=== PATIENT | male | born 1945 | race Caucasian/White ===

== ENCOUNTER → 2018-12-25 13:17 | Outpatient (CLI) | payer MEDICARE, SELFPAY ==
--- NOTE | 2018-12-25 | DI.MRI.S_ITS ---
PROCEDURE: MR SHOULDER LT WO CON INDICATIONS: Pain in left shoulder TECHNIQUE: Noncontrast oblique coronal T2 fast spin echo with fat saturation, oblique sagittal T1 spin echo and T2 fast spin echo with fat saturation, axial T1 spin echo and T2 fast spin echo with fat saturation through the shoulder. COMPARISON: None. FINDINGS: Image quality: Excellent. Rotator cuff: Large full-thickness tear involving the supraspinatus tendon critical zone measuring approximately 2.2 cm in AP dimension as seen on sagittal image 15 series 10, and 2.0 cm in the transverse left longitudinal dimension as seen on coronal image 8 series 8. The infraspinatus tendon appears grossly intact. Teres minor appears intact. Subscapularis tendinopathy and thickening noted. Borderline atrophy of the supraspinatus muscle. There is diffuse fatty infiltration of the rotator cuff musculature. Bones and bursae: No bone marrow contusions or fractures. Moderate acromioclavicular joint degeneration. Moderate glenohumeral degenerative joint disease. The acromion demonstrates conventional anatomy, without an os acromiale. Capsule and soft tissues: Blunting of the superior labrum without discrete tear by strict MR criteria. There is heterogeneous signal change and mild hypertrophy of the anteroinferior labrum as well as the posteroinferior labrum. This suggests chronic tear versus degeneration. Adjacent circumferential/segmental glenoid rim sclerosis is noted The long head of the biceps tendinopathy noted without definite medial subluxation. The rotator interval appears normal, without fibrosis. The coracohumeral ligament is normal in thickness. IMPRESSION: Large full-thickness tear of the supraspinatus tendon critical zone. Borderline supraspinatus atrophy. Subscapularis tendinopathy. Degenerative joint disease as above. Chronic irregularity and hypertrophy of the anteroinferior and posteroinferior labrum suggesting chronic tear with fibrotic change, versus long standing degeneration. Long head biceps tendinopathy. Dictated by: Job Potter M.D. on 12/27/2018 at 10:28 Approved by: Job Potter M.D. on 12/27/2018 at 10:36
== END ==
PROVIDERS: Visit Provider Orthopaedic Surgery
DX: M25.512 Pain in left shoulder (principal); M75.122 Complete rotator cuff tear or rupture of left shoulder, not specified as traumatic; M19.012 Primary osteoarthritis, left shoulder
CPT/HCPCS: 73221

== ENCOUNTER → 2019-01-11 12:08 | Outpatient (CLI) | payer MEDICARE, SELFPAY ==
[2019-01-11 12:48] LABS: Add Manual Diff / Slide Review NO; Basophils Absolute Auto 0 /uL (0-100); Basophils Percent Auto 0.4 % (0-2); Eosinophils Absolute Auto 200 /uL (0-450); Eosinophils Percent Auto 2.5 % (2-4); Hematocrit 39.7 % (41-53); Hemoglobin 13.7 g/dL (13.5-17.5); Lymphocytes Absolute Auto 1400 /uL (1100-4500); Mean Corpuscular HGB Conc 34.6 % (30-36); Mean Corpuscular Hemoglobin 30.8 PG (26-34); Mean Corpuscular Volume 89.1 fL (80-100); Monocytes Absolute Auto 400 /uL (0-900); Monocytes Percent Auto 7.1 % (3-14); Neutrophils Absolute Auto 4100 /uL (1500-7000); Platelet Count 189 X10^3/uL (150-400); Red Blood Cell Count 4.46 X10^6/uL (4.5-5.9); White Blood Cell Count 6.2 X10^3/uL (4.5-11.0)
[2019-01-11 13:02] LABS: Blood Urea Nitrogen 18 mg/dL (9-20); Calcium 9.8 mg/dL (8.4-10.2); Carbon Dioxide 29 mmol/L (22-32); Chloride 104 mmol/L (98-107); Estimated Glomerular Filt Rate > 60.0 mL/min (>60); Glucose 98 mg/dL (80-110); HEMOLYSIS < 15 (0-50); Potassium 4.4 mmol/L (3.4-5.1); Sodium 142 mmol/L (137-145)
== END ==
PROVIDERS: Visit Provider Orthopaedic Surgery
DX: S46.012A Strain of muscle(s) and tendon(s) of the rotator cuff of left shoulder, initial encounter (principal); Z01.818 Encounter for other preprocedural examination
CPT/HCPCS: 36415; 80048; 85025; 93005

== ENCOUNTER 2020-03-14 07:16 | Day surgery (SDC) | payer MEDICARE, SELFPAY ==
--- NOTE | 2020-03-13 18:18 | PM.PREOP ---
Pre-operative Note COVID-19 COVID-19 status: Negative Interval Note History & Physical reviewed/Exam performed by Physician: Yes Changes to H&P: No
--- NOTE | 2020-03-14 07:29 | PM.OP.1 ---
Operative Date/Time/Diagnoses Date of procedure: 03/14/20 Time of procedure: 08:45 Procedure & Clinicians Procedure: Preoperative diagnoses: 1. Left nuclear sclerotic and cortical cataract. 2. History of stroke. 3. History of enlarged prostate. 4. Vertigo 5. Claustrophobia Postoperative diagnoses: 1. Cataract removed by phacoemulsification with placement of posterior chamber intraocular lens. 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 Both distance and near are affected. The patient wants surgery to improve vision. He does have positional vertigo which he cannot determine when it will onset. He had no episodes during this surgery although he did have slight nausea The patient was taken to the operating room and given IV sedation. A retrobulbar block consisting of 6 cc of 2% xylocaine without epinephrine mixed half and half with 0.5% Marcaine with 1 cc of hyaluronidase added is placed between the medial and lateral 1/3 of the inferior orbital rim. The eye is manually massaged for 30 sec, prepped using Betadine solution, and draped in the usual sterile fashion. Temporal approach was made, a 1 mm side-port incision was made 90? from the proposed clear corneal incision position. Phenylephrine 1.5% mixed with 1% xylocaine 0.2 cc was placed into the anterior chamber. Viscoat followed by Healon was then placed. A 2.6 mm clear incision with a 2.6 mm blade was placed. A 360 degree capsulorrhexis style capsulotomy was then performed with a cystitome needle on a Healon. Hydrodelineation and hydrodissection were performed. The phacoemulsification unit is introduced, and sculpting notice used to groove the central lens. It is then removed in chopping mode. Epi nucleus is removed with epinuclear mode and irrigation aspiration was used to remove the peripheral cortex. The posterior capsule is polished. The intraocular lens is selected, inspected, power confirmed, and placed in the posterior chamber. The wound was stromally hydrated and tested for leaks, there was none and it was left sutureless. Vigamox 0.1 cc was placed into the anterior chamber. Kenalog 0.2 cc was placed in the superior subconjunctival space. A drop of antibiotic and was placed and the eye was patched and shielded. The patient was stable and returned to the recovery room in excellent condition. Dictated by: Tia Cheatham MD Copy to: [facility] Same procedure as scheduled: Yes
[2020-03-14 08:06] VITALS: BP 144/70; PULSE 53; RESP 16; TEMP 36.9; O2SAT 98; BMI 25.8
[2020-03-14] MEDS: PROPARACAINE 0.5% OPHTH SOL 2 DROPS EYE-OP (08:12)
[2020-03-14] MEDS: CATARACT EYE COMPOUND (10 DROPS/SYRINGE) 3 DROPS EYE-OP (08:12)
--- NOTE | 2020-03-14 08:19 | SUR.OPER ---
Supine on eye stretcher, head on extension cradle secured with tape. Arms tucked at sides with blanket. Pillow under knees.
[2020-03-14] MEDS: BALANCED SALT IRRIG SOLN NO.2 500 ML, EPINEPHrine 1 MG IRR (09:14)
[2020-03-14] MEDS: LIDOCAINE 2% 4 ML, BUPIVACAINE 0.5% (PF) 4 ML, HYALURONIDASE 150 UNIT INJ (09:15)
[2020-03-14] MEDS: TRIAMCINOLONE 50 MG/5 ML VIAL INJ (09:16)
[2020-03-14] MEDS: PHENYLEPHRINE/LIDOCAINE VIAL (OR) 0.2 ML EYE-OP (09:17)
[2020-03-14] MEDS: MOXIFLOXACIN INJ 5 MG/ML VIAL EYE-OP (09:18)
[2020-03-14] MEDS: HYALURONATE SODIUM 10 MG/ML SYRINGE INJ (09:19)
[2020-03-14] MEDS: CHONDROIDTIN/SOD HYALURONATE 1.05 ML SYRINGE INTRAOCULA (09:19)
[2020-03-14] MEDS: ERYTHROMYCIN OPHTH 1 GM OINT 1 APPLIC EYE-LEFT (09:26)
[2020-03-14 09:36] VITALS: BP 133/78; PULSE 49; RESP 17; TEMP 36.3; O2SAT 97
[2020-03-14 09:55] VITALS: BP 113/69; PULSE 49; RESP 17; TEMP 36.6; O2SAT 96
== END 2020-03-14 09:57 | disposition home or self-care (01) ==
PROVIDERS: PCP Family Medicine; Referring Provider Family Medicine; Visit Provider Ophthalmology
PROC: (CPT 66984; principal; 2020-03-14 08:45)
DX: H25.812 Combined forms of age-related cataract, left eye (principal); Z86.73 Personal history of transient ischemic attack (TIA), and cerebral infarction without residual deficits; R42 Dizziness and giddiness; I10 Essential (primary) hypertension; I25.10 Atherosclerotic heart disease of native coronary artery without angina pectoris
CPT/HCPCS: 66984; J0171; J2704; J3301; J3470

== ENCOUNTER 2020-03-28 10:24 | Day surgery (SDC) | payer MEDICARE, SELFPAY ==
--- NOTE | 2020-03-28 08:03 | P.OP_ITS ---
Operative Date/Time/Diagnoses Date of procedure: 03/28/20 Time of procedure: 11:45 Procedure & Clinicians Procedure: Preoperative diagnoses: 1. Right significant Nuclear sclerotic and corticalcataract 2. Astigmatism which is to be corrected with a toric intraocular lens implant. 3. Positional vertigo Postoperative diagnoses: 1. Cataract removal with phacoemulsification with toric posterior chamber intraocular lens implant placed. Procedure: Phacoemulsification with posterior chamber toric intraocular lens implant. Surgeon: Tia Cheatham MD Complications: None Specimen: None Implant: [id number] +21.5 [place] 024 Blood loss: None Anesthesia: Retrobulbar with monitored standby Description of procedure: Patient presents with a complaint of decreased vision due to cataract which is affecting activities of daily living. 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 The patient wants surgery to improve vision and astigmatism. He has a history of on predictable positional vertigo. The patient was taken to the operating room and proparacaine drops placed. Indelible ink muñoz were placed at the 90 and 180 degree meridian. The patient was placed on the operating room table and given IV sedation. A retrobulbar block insert consisting of 6 cc of 2% xylocaine without epinephrine mixed half and half with 0.5% Marcaine with 1 cc of hyaluronidase added is placed between the medial and lateral 1/3 of the inferior orbital rim. The eye is manually massaged for 30 sec, prepped using Betadine solution, and draped in the usual sterile fashion. Temporal approach was made, a 1 mm side-port incision was made 90? from the proposed corneal wound. Phenylephrine 1.5% mixed with 1% xylocaine 0.2 cc was placed into the anterior chamber. Viscoat followed by Chris was then placed. A 2.6 mm clear incision with a 2.6 mm blade was placed at the 170 degree meridian. A 360 degree capsulorrhexis style capsulotomy was then performed with a cystitome needle on a Healon. Hydrodelineation and hydrodissection were performed. The phacoemulsification unit is introduced, and sculpting used to groove the central lens. It is then removed in chopping mode. Epi nucleus is removed with epinuclear mode and irrigation aspiration was used to remove the peripheral cortex. The posterior capsule is polished. The intraocular lens is selected, inspected, power confirmed, and placed in the posterior chamber at the desired meridian of 24?. The pupil was not constricted. The wound was stromally hydrated and tested for leaks, there was none and it was left sutureless. Vigamox 0.1 cc was placed into the anterior chamber. Kenalog 0.2 cc was placed in the superior subconjunctival space. A drop of antibiotic and was placed and the eye was patched and shielded. The patient was stable and returned to the recovery room in excellent condition. Dictated by: Tia Cheatham MD Copy to: [facility] Same procedure as scheduled: Yes
--- NOTE | 2020-03-28 08:03 | PM.PREOP ---
Pre-operative Note COVID-19 COVID-19 status: Negative Interval Note History & Physical reviewed/Exam performed by Physician: Yes Changes to H&P: No
[2020-03-28] MEDS: PROPARACAINE 0.5% OPHTH SOL 2 DROPS EYE-OP ×2 (11:08→11:44)
[2020-03-28] MEDS: CATARACT EYE COMPOUND (10 DROPS/SYRINGE) 3 DROPS EYE-OP (11:08)
[2020-03-28 11:11] VITALS: BP 123/64; PULSE 46; RESP 20; TEMP 36.8; O2SAT 98; BMI 24.3
[2020-03-28] MEDS: LIDOCAINE 2% 4 ML, BUPIVACAINE 0.5% (PF) 4 ML, HYALURONIDASE 150 UNIT INJ (11:48)
[2020-03-28] MEDS: ERYTHROMYCIN OPHTH 1 GM OINT 1 APPLIC EYE-RIGHT (12:01)
[2020-03-28] MEDS: CHONDROIDTIN/SOD HYALURONATE 1.05 ML SYRINGE INTRAOCULA (12:01)
[2020-03-28] MEDS: TRIAMCINOLONE 50 MG/5 ML VIAL INJ (12:02)
[2020-03-28] MEDS: MOXIFLOXACIN INJ 5 MG/ML VIAL EYE-OP (12:02)
[2020-03-28] MEDS: HYALURONATE SODIUM 10 MG/ML SYRINGE INJ (12:02)
[2020-03-28] MEDS: PHENYLEPHRINE/LIDOCAINE VIAL (OR) 0.2 ML EYE-OP (12:02)
[2020-03-28] MEDS: BALANCED SALT IRRIG SOLN NO.2 500 ML, EPINEPHrine 1 MG IRR (12:03)
[2020-03-28 12:30] VITALS: BP 119/57; PULSE 48; RESP 16; TEMP 36.2; O2SAT 97
[2020-03-28 12:50] VITALS: BP 100/53; PULSE 47; RESP 15; TEMP 36.9; O2SAT 97
[2020-03-28 13:00] VITALS: BP 107/62; PULSE 46; RESP 17; TEMP 36.2; O2SAT 97
== END 2020-03-28 13:05 | disposition home or self-care (01) ==
PROVIDERS: PCP Family Medicine; Referring Provider Ophthalmology; Visit Provider Ophthalmology
PROC: (CPT 66984; principal; 2020-03-28 11:45)
DX: H25.811 Combined forms of age-related cataract, right eye (principal); H52.201 Unspecified astigmatism, right eye; H81.10 Benign paroxysmal vertigo, unspecified ear
CPT/HCPCS: 66984; J0171; J2250; J2704; J3010; J3301; J3470; V2787

== ENCOUNTER → 2021-10-24 09:14 | Outpatient (CLI) | payer MEDICARE, SELFPAY ==
[2021-10-24 10:51] LABS: Add Manual Diff / Slide Review NO; Basophils Absolute Auto 0 /uL (0-100); Basophils Percent Auto 0.3 % (0-2); Eosinophils Absolute Auto 100 /uL (0-450); Eosinophils Percent Auto 1.8 % (2-4); Hematocrit 36.8 % (41-53); Lymphocytes Absolute Auto 1000 /uL (1100-4500); Lymphocytes Percent Auto 19.4 % (25-40); Mean Corpuscular HGB Conc 35.3 % (30-36); Mean Corpuscular Hemoglobin 31.5 PG (26-34); Mean Corpuscular Volume 89.2 fL (80-100); Monocytes Absolute Auto 400 /uL (0-900); Monocytes Percent Auto 7.5 % (3-14); Neutrophils Absolute Auto 3700 /uL (1500-7000); Platelet Count 161 X10^3/uL (150-400); Red Blood Cell Count 4.13 X10^6/uL (4.5-5.9); Red Cell Distribution Width 14.3 % (11.6-14.8); White Blood Cell Count 5.2 X10^3/uL (4.5-11.0)
[2021-10-24 11:09] LABS: Erythrocyte Sedimentation Rate 14 MM/HR (0-15)
[2021-10-24 11:15] LABS: Alanine Aminotransferase 21 IU/L (<50); Albumin 4.4 g/dL (3.5-5.0); Albumin Globulin Ratio 1.6 (1.0-2.8); Alkaline Phosphatase 48 U/L (38-126); Aspartate Aminotransferase 29 IU/L (17-59); BUN Creatinine Ratio 18.9 (6-22); Bilirubin Total 0.4 mg/dL (0.2-1.3); Blood Urea Nitrogen 18 mg/dL (9-20); Calcium 9.3 mg/dL (8.4-10.2); Carbon Dioxide 29 mmol/L (22-32); Chloride 108 mmol/L (98-107); Estimated Glomerular Filt Rate > 60 mL/min (>60); Globulin 2.8 g/dL (1.7-4.1); Glucose 102 mg/dL (80-110); HEMOLYSIS < 15 (0-50); Potassium 4.2 mmol/L (3.4-5.1); Sodium 144 mmol/L (137-145); Total Protein 7.2 g/dL (6.3-8.2)
[2021-10-24 11:19] LABS: High Sensitivity CRP - Cardiac 0.8 mg/L (1.0-3.0)
== END ==
PROVIDERS: PCP Family Medicine; Referring Provider Ophthalmology; Visit Provider Ophthalmology
DX: H53.123 Transient visual loss, bilateral (principal); I63.89 Other cerebral infarction
CPT/HCPCS: 36415; 80053; 85025; 85651; 86140

== ENCOUNTER → 2022-05-20 10:13 | Outpatient (CLI) | payer MEDICARE, SELFPAY ==
--- NOTE | 2022-05-20 10:16 | DI.RAD.S_ITS ---
PROCEDURE: XR CERVICAL SPINE 4V OR 5V INDICATIONS: NECK PAIN TECHNIQUE: 5 views of the cervical spine acquired. COMPARISON: None. FINDINGS: Bones: No fractures or dislocations to the C7-T1 level. Oblique images demonstrate no bony foraminal stenoses. Multilevel degenerative disc space narrowing is present. Multilevel uncovertebral hypertrophy is present. There is bilateral foraminal narrowing most severe at C5-6 and C6-7. Soft tissues: No prevertebral soft tissue swelling. IMPRESSION: Multilevel degenerative changes most severe at C5-6 and C6-7. Dictated by: Magalys Tay M.D. on 05/20/2022 at 11:56 Approved by: Magalys Tay M.D. on 05/20/2022 at 11:57
== END ==
PROVIDERS: PCP Family Medicine; Referring Provider Anesthesiology; Visit Provider Anesthesiology
DX: M47.12 Other spondylosis with myelopathy, cervical region (principal); M54.2 Cervicalgia
CPT/HCPCS: 72050; 99214